=== PATIENT | male | born 1955 | race Caucasian/White ===

== ENCOUNTER 2017-06-07 06:36 | Day surgery (SDC) | payer BC ==
[2017-06-07] MEDS ORDERED: ONDANSETRON HCL INJ/PF 4 MG/2 ML SDV ONE (07:17)
[2017-06-07] MEDS ORDERED: NALOXONE HCL INJ/PF 0.4 MG/1 ML SDV ONE (07:17)
[2017-06-07] MEDS ORDERED: GLYCOPYRROLATE INJ 0.4 MG/2 ML VIAL ONE (07:17)
[2017-06-07] MEDS ORDERED: FLUMAZENIL INJ 0.5 MG/5 ML VIAL IV ONE (07:18)
[2017-06-07] MEDS ORDERED: GLUCAGON,HUMAN RECOMB 1 MG INJ ONE (07:18)
[2017-06-07] MEDS ORDERED: MIDAZOLAM 2 MG/2 ML INJ ONE (07:18)
[2017-06-07] MEDS ORDERED: EPINEPHRINE INJ 1 MG/10 ML DISP.SYRIN ONE (07:18)
[2017-06-07] MEDS: MIDAZOLAM 2 MG/2 ML INJ ONE ×2 (07:38→07:43)
[2017-06-07] MEDS: FENTANYL CITRATE INJ/PF 100 MCG/2 ML AMPUL ONE ×2 (07:40→07:45)
--- NOTE | 2017-06-07 08:20 | Operative Report ---
Operative Report DATE OF SURGERY: 06/07/17 PREOPERATIVE DIAGNOSIS: Personal history of tubular adenoma left colon POSTOPERATIVE DIAGNOSIS: Upper rectal polyp likely hyperplastic OPERATION: 1. Total colonoscopy to cecum. 2. Upper rectal polypectomy at 19 cm from anal verge SURGEON: YKRIE HERNANDEZ ANESTHESIA: Moderate Sedation TISSUE REMOVED OR ALTERED: 1 polyp COMPLICATIONS: None ESTIMATED BLOOD LOSS: Scant INTRAOPERATIVE FINDINGS: See below PROCEDURE: Obtaining informed consent the patient was taken from the preoperative holding area to the main endoscopy suite where monitoring devices were attached to the patient. Plan and surgical timeout were conducted The patient was placed in the left lateral decubitus position with knees to chest. A perianal examination was performed. There was no visible or palpable anorectal pathology. Sphincter tone was felt to be normal. The flexible adult colonoscope was advanced through the anal rectal canal, all the way to the cecum. Utilization of the cecum was achieved and the ileocecal valve, the appendiceal orifice and transillumination of the anterior abdominal wall. This was an excellent study on the well-prepped bowel. The colonoscope was withdrawn slowly and methodically checked and the mucosa carefully. There was no evidence of tumor, stricture, bleeding; there was a small 3 cm sessile polyp at approximately 19 cm from the anal verge. It was removed using the hot snare device and specimen retrieved. Cautery site photographed and in good shape. No bleeding. There was no evidence of diverticuloses. The scope was slowly withdrawn through the anal rectal canal. Complete visualization of the rectum was achieved with photodocumentation. The scope was withdrawn to the patient's anus. The patient tolerated the procedure well and was taken to the recovery area in stable condition. Per surveillance guidelines, patient will be appropriate candidate for follow- up colonoscopy in approximately 3 years, or sooner if symptoms develop.
--- NOTE | 2017-06-07 08:21 | PDOC DISCHARGE SUMMARY ---
Discharge Summary (SDC) - Discharge Final Diagnosis: Upper rectal polyp Date of Surgery: 06/07/17 Discharge Date: 06/07/17 Condition: Good Treatment or Instructions: [facility] [place] [id number] POST ENDOSCOPY DISCHARGE INSTRUCTIONS 1. Diet: Start clear liquids that a regular diet as tolerated. 2. Resume all preoperative medications. All oral anticoagulants and aspirins can be resumed 24 hours after procedure. 3. If a polypectomy was performed some bleeding per rectum may occur. This should stop within 3 days. If not, please contact the office. 4. If you had a colonoscopy you may experience some bloating and delayed return of normal bowel function for several days, your regular bowel movement pattern should resume within a week. 5. Please contact [facility] at to make an appointment with Dr. Grace for 1 to 3 weeks following procedure. 6. If you have any questions or concerns regarding your care,treatment plan or follow up, please contact our office. 7. Per clinical guidelines we recommend you undergo a repeat colonoscopy in 3 years. Discharge Activity: Activity As Tolerated Home Care Assistance: None Needed Report the Following to Your Physician Immediately: Shortness of Breath, Increase in Pain, Fever over 101 Degrees
[2017-06-07 09:09] VITALS: BP 127/81
== END 2017-06-07 09:20 | disposition home or self-care (01) ==
LOC: END 06:36
PROVIDERS: ATTEND Surgery
PROC: 0DBP8ZX Excision of Rectum, Via Natural or Artificial Opening Endoscopic, Diagnostic (ICD-10-PCS; principal; 2017-06-07 07:30)
DX: K63.5 Polyp of colon (principal); E11.9 Type 2 diabetes mellitus without complications; E66.9 Obesity, unspecified; E78.00 Pure hypercholesterolemia, unspecified; Z79.84 Long term (current) use of oral hypoglycemic drugs; Z79.82 Long term (current) use of aspirin; Z79.899 Other long term (current) drug therapy; Z85.46 Personal history of malignant neoplasm of prostate; Z68.38 Body mass index [BMI] 38.0-38.9, adult
CPT/HCPCS: 45385; 82962; 88305 ×2; J2250; J3010; J0171; J1610; J2310; J2405; J3490